=== PATIENT | male | born 1955 | race Caucasian/White ===

== ENCOUNTER 2021-11-12 11:55 | Inpatient (IN) | payer OTHER ==
[~2021-11-12] VITALS: Ht 177.8 cm; Wt 97.1 kg
[2021-11-12 13:41] LABS: BASOPHILS # (AUTO) 0.1 K/uL (0.0-0.2); BASOPHILS % (AUTO) 1.2 % (0.0-2.0); EOSINOPHILS # (AUTO) 0.3 K/uL (0.0-0.4); HEMATOCRIT 31.2 % (36-54); HEMOGLOBIN 10.4 g/dL (14.0-18.0); LYMPHOCYTES # (AUTO) 1.2 K/uL (1.0-5.5); LYMPHOCYTES % (AUTO) 15.9 % (20.5-51.5); MEAN CORPUSCULAR HEMOGLOBIN 29 pg (27-31); MEAN CORPUSCULAR HGB CONC 33 % (32-36); MEAN CORPUSCULAR VOLUME 87 fL (79.0-98.0); MONOCYTES # (AUTO) 0.9 K/uL (0.0-1.0); MONOCYTES % (AUTO) 11.9 % (1.7-9.3); NEUTROPHILS # (AUTO) 5.2 K/uL (1.8-7.7); PLATELET COUNT (AUTO) 181 K/uL (130-430); RED BLOOD CELL COUNT(AUTO) 3.59 MIL/uL (4.2-6.2); RED CELL DISTRIBUTION WIDTH 14.5 % (9.0-15.0); WHITE BLOOD COUNT (AUTO) 7.7 K/uL (4.8-10.8)
[2021-11-12 13:54] LABS: CALCIUM 8.1 mg/dL (8.4-11.0); CREATININE 5.89 mg/dL (0.55-1.30); POTASSIUM 5.7 mmol/L (3.5-5.1)
[2021-11-12 14:03] LABS: ALBUMIN 2.8 g/dL (3.4-4.8); TOTAL BILIRUBIN 0.3 mg/dL (0.0-1.0)
--- NOTE | 2021-11-12 15:00 | NUR ---
Placed in room H1 . Placed on inspector returned materials, blood pressure machine and pulse oximeter. To gown for exam. Side rails up.
--- NOTE | 2021-11-12 15:07 | NUR ---
DR KAUR IN ROOM FOR EXAM
[2021-11-12] MEDS ORDERED: SODIUM BICARBONATE 8.4% JECT 50 MEQ/50 ML SYRINGE IVP ONE (15:15)
[2021-11-12] MEDS ORDERED: CALCIUM GLUCONATE 1 GM/10 ML VIAL IVP ONE (15:15)
[2021-11-12] MEDS ORDERED: SODIUM POLYSTYRENE SULFONATE 15 GM/60 ML UDBTL PO ONE (15:15)
--- NOTE | 2021-11-12 16:12 | NUR ---
REPORT RECEIEVED, PT LAYING IN BED, IN NAD. RESP EVEN AND UNLABORED, ON RA @98%. PT AAOX3, REPORTS BEING TOLD FROM WORK COMPANY TO COME HERE FOR ABNORMAL LABS. PT DENIES ANY SOB OR CP. SKIN W/D/I. REPORTS SOME OLD HISTORY OF RENAL ISSUES, BUT HAS NOT FOLLOWED UP RECENTLY.
[2021-11-12] MEDS ORDERED: IPRATROPIUM/ALBUTEROL SULFATE 3 ML AMPUL.NEB (DUONEB) INH PRN (16:30)
[2021-11-12] MEDS ORDERED: MUPIROCIN 2% TOPICAL OINTMENT 22 GM NS PRN (16:30)
[2021-11-12] MEDS ORDERED: ACETAMINOPHEN 325 MG TABLET PO PRN (16:30)
[2021-11-12] MEDS ORDERED: LORazepam 2 MG/ML VIAL IVP PRN (16:30)
[2021-11-12] MEDS ORDERED: MAGNESIUM SULFATE 50 ML IV PRN (16:30)
[2021-11-12] MEDS ORDERED: ZOLPIDEM TARTRATE 5 MG TABLET PO PRN (16:30)
[2021-11-12] MEDS ORDERED: NACL 0.9% 1,000 ML IV SCH (16:30)
[2021-11-12] MEDS ORDERED: MORPHINE 2 MG/ML INJ. SYRINGE IVP PRN ×2 (16:30)
[2021-11-12] MEDS ORDERED: ONDANSETRON HCL 4 MG/2 ML VIAL IVP PRN (16:30)
[2021-11-12] MEDS ORDERED: POTASSIUM CHLORIDE 20 MEQ TAB.PRT.SR PO PRN (16:30)
[2021-11-12] MEDS ORDERED: DOCUSATE SODIUM 100 MG CAPSULE PO PRN (16:30)
--- NOTE | 2021-11-12 16:47 | NUR ---
DR MALONE AT BEDSIDE FOR ORDERS.
[2021-11-12 16:49] LABS: CALCIUM 8.6 mg/dL (8.4-11.0); CREATININE 5.72 mg/dL (0.55-1.30); POTASSIUM 5.5 mmol/L (3.5-5.1)
--- NOTE | 2021-11-12 16:50 | NUR ---
PT UP TO BATHROOM, STEAY GAIT.
--- NOTE | 2021-11-12 17:04 | NUR ---
KIDNEY US BEING DONE AT BEDSIDE.
--- NOTE | 2021-11-12 17:50 | NUR ---
PT HYPERTENSIVE AT 187/104, DR KAUR INFORMED. PT ASYMTPOMATIC, WILL CONT TO MONITOR CLOSELY, ORDERS RECEIEVED.
--- NOTE | 2021-11-12 18:32 | NUR ---
DINNER CARDIAC TRAY GIVEN-TOLERATED WELL.
--- NOTE | 2021-11-12 19:08 | NUR ---
us venous dopppler beig done at bedside.
--- NOTE | 2021-11-12 19:39 | NUR ---
PT HAD DINNER-CARDIAC DIET, TOLERATED WELL. PT CONT TO BE HYPERTENSIVE, DR KAUR REMINDED AGAIN. WILL WAIT FOR HYDRALAZINE ORDER.
[2021-11-12] MEDS ORDERED: hydrALAZINE HCL 20 MG/ML VIAL IVP ONE (19:45)
[2021-11-12] MEDS ORDERED: LISI-209 PO (20:04)
[2021-11-12] MEDS ORDERED: SIMV20TA2 PO (20:04)
[2021-11-12] MEDS ORDERED: DILT30TA36 PO (20:04)
--- NOTE | 2021-11-12 21:07 | NUR ---
DR TY (NEPHROLOGST) AT BEDSIDE FOR EXAM.
[2021-11-12] MEDS ORDERED: SODIUM ZIRCONIUM CYCLOSILICATE 10 GM POWD.PACK PO ONE (21:45)
--- NOTE | 2021-11-12 22:06 | NUR ---
PT READING AT THIS TIME, IN NAD. DENIES ANY CP OR SOB. SKIN W/D/I, ON MONITOR. CONT TO BE HYPERTENSIVE AT 209/106, DR KAUR UPDATED. 97% ON RA.
--- NOTE | 2021-11-13 00:03 | NUR ---
PT WITH EYES CLOSED. RESP EVEN AND UNLABORED, ON RA @99%. SR ON MONITOR. SAFTEY PRECAUTIONS IN PLACE, WILL CONT TO MONITOR. VSS.
[2021-11-13 00:52] VITALS: BP_SYST 188
--- NOTE | 2021-11-13 02:08 | NUR ---
PT WITH EYES CLOSED, EASILY AROUSABLE. DENIES ANY GARCIA , DIZZINES, CP OR SOB. NSR ON MONITOR.
[2021-11-13] MEDS: amLODIPine BESYLATE 10 MG TABLET PO SCH (02:28)
[2021-11-13] MEDS: HEPARIN SODIUM,PORCINE 5,000 UNITS/ML VIAL SUBCUT SCH ×3 (02:35→21:58)
--- NOTE | 2021-11-13 04:25 | NUR ---
PT UP TO BATHROOM, STEADY GAIT. DENIES ANY CP OR SOB. IV FUIDS INFUSING WELL.
--- NOTE | 2021-11-13 05:40 | NUR ---
NO ACUTE CHNAGES IN CONDITION, PT SNORING, SR ON MONITOR. IV FLUIDS INFUSING WELL.
--- NOTE | 2021-11-13 06:02 | NUR ---
JONATHAN ACEVEDO COLLEECTED AND SENT.
--- NOTE | 2021-11-13 06:06 | NUR ---
MANAGER RESPIRATORY AT BEDSIDE FOR BLOOD COLLECTION
[2021-11-13 06:51] LABS: BASOPHILS # (AUTO) 0.1 K/uL (0.0-0.2); BASOPHILS % (AUTO) 0.9 % (0.0-2.0); EOSINOPHILS # (AUTO) 0.4 K/uL (0.0-0.4); EOSINOPHILS % (AUTO) 5.3 % (0.0-4.0); HEMATOCRIT 32.8 % (36-54); HEMOGLOBIN 10.8 g/dL (14.0-18.0); LYMPHOCYTES # (AUTO) 1.1 K/uL (1.0-5.5); LYMPHOCYTES % (AUTO) 16.1 % (20.5-51.5); MEAN CORPUSCULAR HEMOGLOBIN 29 pg (27-31); MEAN CORPUSCULAR HGB CONC 33 % (32-36); MEAN CORPUSCULAR VOLUME 88 fL (79.0-98.0); MONOCYTES # (AUTO) 0.8 K/uL (0.0-1.0); MONOCYTES % (AUTO) 11.2 % (1.7-9.3); NEUTROPHILS # (AUTO) 4.6 K/uL (1.8-7.7); NEUTROPHILS % (AUTO) 66.5 % (40.0-70.0); PLATELET COUNT (AUTO) 177 K/uL (130-430); RED BLOOD CELL COUNT(AUTO) 3.74 MIL/uL (4.2-6.2); RED CELL DISTRIBUTION WIDTH 14.1 % (9.0-15.0); WHITE BLOOD COUNT (AUTO) 6.9 K/uL (4.8-10.8)
[2021-11-13 07:29] LABS: CREATININE 5.03 mg/dL (0.55-1.30); POTASSIUM 4.5 mmol/L (3.5-5.1)
[2021-11-13] MEDS ORDERED: METOPROLOL TARTRATE 25 MG TABLET PO SCH (08:30)
[2021-11-13] MEDS ORDERED: hydrALAZINE HCL 20 MG/ML VIAL IVP PRN (08:30)
--- NOTE | 2021-11-13 09:10 | NUR ---
Dr Beasley at bedside examining pt.
--- NOTE | 2021-11-13 09:55 | NUR ---
echocardiogram in progress.
[2021-11-13] MEDS ORDERED: LABETALOL HCL 100 MG TABLET PO ONE (10:30)
[2021-11-13] MEDS ORDERED: HEPARIN SODIUM,PORCINE 5,000 UNITS/ML VIAL ONE (10:32)
[2021-11-13] MEDS: 0.45% NACL 1,000 ML IV SCH (10:38)
--- NOTE | 2021-11-13 14:05 | NUR ---
transferred pt to Telemetry dept 116-a, report given to SERA Epstein. All personal belongings removed and brought in to assigned room.
[2021-11-13 14:20] VITALS: BP_SYST 181
[2021-11-13 15:18] LABS: ALBUMIN 2.4 g/dL (3.4-4.8); CALCIUM 7.7 mg/dL (8.4-11.0); CREATININE 4.98 mg/dL (0.55-1.30); POTASSIUM 4.2 mmol/L (3.5-5.1); TOTAL BILIRUBIN 0.4 mg/dL (0.0-1.0)
[2021-11-13] MEDS: DILTIAZEM HCL 30 MG TABLET PO SCH ×2 (18:52→21:48)
[2021-11-13 18:56] VITALS: BP_SYST 182
[2021-11-13] MEDS: hydrALAZINE HCL 25 MG TABLET PO SCH ×2 (18:56→21:47)
[2021-11-13 18:58] VITALS: BP_SYST 177
--- NOTE | 2021-11-13 20:42 | NUR ---
ADMISSION NOTE late entry 14:05 Received patient from ER via gurney, received report from RN. Patient admitted with diagnosis of acute renal failure. Patient oriented to hospital routine, call light, toileting and safety-patient verbalized understanding.
[2021-11-13] MEDS ORDERED: LABETALOL HCL 100 MG TABLET PO SCH (21:00)
[2021-11-13] MEDS ORDERED: hydrALAZINE HCL 25 MG TABLET PO SCH (21:00)
[2021-11-13] MEDS: SIMVASTATIN 20 MG TABLET PO SCH (22:08)
[2021-11-13 22:30] VITALS: BP_SYST 195
[2021-11-14] MEDS: 0.45% NACL 1,000 ML IV SCH ×2 (00:14→15:36)
[2021-11-14 01:00] VITALS: BP_SYST 133
[2021-11-14 07:42] LABS: BASOPHILS % (AUTO) 0.6 % (0.0-2.0); EOSINOPHILS # (AUTO) 0.3 K/uL (0.0-0.4); EOSINOPHILS % (AUTO) 5.2 % (0.0-4.0); HEMATOCRIT 29.9 % (36-54); HEMOGLOBIN 10.1 g/dL (14.0-18.0); LYMPHOCYTES # (AUTO) 1.2 K/uL (1.0-5.5); LYMPHOCYTES % (AUTO) 18.4 % (20.5-51.5); MEAN CORPUSCULAR HEMOGLOBIN 29 pg (27-31); MEAN CORPUSCULAR HGB CONC 34 % (32-36); MEAN CORPUSCULAR VOLUME 87 fL (79.0-98.0); MONOCYTES # (AUTO) 0.6 K/uL (0.0-1.0); MONOCYTES % (AUTO) 9.2 % (1.7-9.3); NEUTROPHILS # (AUTO) 4.2 K/uL (1.8-7.7); NEUTROPHILS % (AUTO) 66.6 % (40.0-70.0); PLATELET COUNT (AUTO) 162 K/uL (130-430); RED BLOOD CELL COUNT(AUTO) 3.44 MIL/uL (4.2-6.2); RED CELL DISTRIBUTION WIDTH 14.2 % (9.0-15.0); WHITE BLOOD COUNT (AUTO) 6.3 K/uL (4.8-10.8)
[2021-11-14 07:52] LABS: CALCIUM 7.8 mg/dL (8.4-11.0); CREATININE 4.34 mg/dL (0.55-1.30); POTASSIUM 4.2 mmol/L (3.5-5.1)
[2021-11-14 09:15] VITALS: BP_SYST 152
[2021-11-14] MEDS: DILTIAZEM HCL 30 MG TABLET PO SCH ×3 (09:30→21:05)
[2021-11-14] MEDS: LABETALOL HCL 100 MG TABLET PO SCH ×3 (09:31→21:04)
[2021-11-14] MEDS: hydrALAZINE HCL 25 MG TABLET PO SCH ×3 (09:32→21:00)
[2021-11-14] MEDS: amLODIPine BESYLATE 10 MG TABLET PO SCH ×2 (09:33→09:36)
[2021-11-14] MEDS: HEPARIN SODIUM,PORCINE 5,000 UNITS/ML VIAL SUBCUT SCH ×2 (09:34→20:55)
[2021-11-14 12:19] VITALS: BP_SYST 118
[2021-11-14 15:31] VITALS: BP_SYST 136
--- NOTE | 2021-11-14 18:48 | NUR ---
Outcome Summary A/Ox4, KALSKAG. VSS. Afebrile. Denies pain or discomfort. RA. SR on tele. SBP stable 120-130s. Tolerating diet. Voiding. Bowel movement x1. Skin intact. Ambulates with steady gait. IVFs continued. All needs met, safety and comfort measures maintained, call light within reach. NR, RN.
[2021-11-14] MEDS ORDERED: BUDESONIDE 0.5 MG/2 ML AMPUL.NEB INH SCH (19:00)
[2021-11-14] MEDS ORDERED: IPRATROPIUM/ALBUTEROL SULFATE 3 ML AMPUL.NEB (DUONEB) INH SCH (19:00)
[2021-11-14 20:52] VITALS: BP_SYST 130
[2021-11-14] MEDS: SIMVASTATIN 20 MG TABLET PO SCH (21:01)
[2021-11-15 00:38] VITALS: BP_SYST 114
[2021-11-15 04:11] VITALS: BP_SYST 130
[2021-11-15] MEDS: 0.45% NACL 1,000 ML IV SCH (05:25)
--- NOTE | 2021-11-15 06:29 | NUR ---
PATIENT WENT THROUGHOUT THE NIGHT WITHOUT ANY COMPLAINTS, BLOOD PRESSURE SYSTOLIC RANGED BETWEEN 114-130. HE HAS A STEADY GAIT AND DENIES ANY PAIN. ALL NEEDS MET, SAFETY AND COMFORT MEASURES MAINTAINED THROUGHOUT THE SHIFT. CALL LIGHT WITHIN PATIENTS REACH AND BED AT LOWEST POSITION
[2021-11-15 07:49] LABS: BASOPHILS % (AUTO) 0.7 % (0.0-2.0); EOSINOPHILS # (AUTO) 0.4 K/uL (0.0-0.4); EOSINOPHILS % (AUTO) 6.1 % (0.0-4.0); HEMATOCRIT 29.4 % (36-54); HEMOGLOBIN 9.8 g/dL (14.0-18.0); LYMPHOCYTES # (AUTO) 0.5 K/uL (1.0-5.5); MEAN CORPUSCULAR HEMOGLOBIN 29 pg (27-31); MEAN CORPUSCULAR HGB CONC 33 % (32-36); MEAN CORPUSCULAR VOLUME 87 fL (79.0-98.0); MONOCYTES # (AUTO) 0.7 K/uL (0.0-1.0); MONOCYTES % (AUTO) 11.6 % (1.7-9.3); NEUTROPHILS # (AUTO) 4.5 K/uL (1.8-7.7); NEUTROPHILS % (AUTO) 73.6 % (40.0-70.0); PLATELET COUNT (AUTO) 151 K/uL (130-430); RED BLOOD CELL COUNT(AUTO) 3.38 MIL/uL (4.2-6.2); WHITE BLOOD COUNT (AUTO) 6.1 K/uL (4.8-10.8)
[2021-11-15 08:14] VITALS: BP_SYST 148
[2021-11-15 08:15] LABS: CALCIUM 7.9 mg/dL (8.4-11.0); CREATININE 4.58 mg/dL (0.55-1.30); POTASSIUM 4.3 mmol/L (3.5-5.1)
[2021-11-15] MEDS: LABETALOL HCL 100 MG TABLET PO SCH ×2 (09:36→15:52)
[2021-11-15] MEDS: DILTIAZEM HCL 30 MG TABLET PO SCH ×2 (09:37→15:52)
[2021-11-15] MEDS: amLODIPine BESYLATE 10 MG TABLET PO SCH (09:38)
[2021-11-15] MEDS: hydrALAZINE HCL 25 MG TABLET PO SCH ×2 (09:39→15:51)
[2021-11-15] MEDS: HEPARIN SODIUM,PORCINE 5,000 UNITS/ML VIAL SUBCUT SCH (09:40)
[2021-11-15] MEDS ORDERED: LABE200T6 PO (13:41)
[2021-11-15] MEDS ORDERED: NOR10 PO (13:46)
[2021-11-15 15:48] VITALS: BP_SYST 148
--- NOTE | 2021-11-15 16:21 | NUR ---
Discharge Summary Discharge instructions explained to pt, verbalized understanding. IV removed, belongings returned, follow-up instructions reviewed. NR, RN.
== END 2021-11-15 16:20 | disposition home or self-care (01) | DRG 291 ==
LOC: SED 11:55 → STU 16:26
PROVIDERS: ADMIT General Practice; ATTEND General Practice
DX: I13.2 Hypertensive heart and chronic kidney disease with heart failure and with stage 5 chronic kidney disease, or end stage renal disease (principal); N17.0 Acute kidney failure with tubular necrosis; I50.43 Acute on chronic combined systolic (congestive) and diastolic (congestive) heart failure; N18.6 End stage renal disease; E44.0 Moderate protein-calorie malnutrition; I16.1 Hypertensive emergency; J44.9 Chronic obstructive pulmonary disease, unspecified; E83.51 Hypocalcemia; E87.5 Hyperkalemia; Z20.822 Contact with and (suspected) exposure to COVID-19; E78.5 Hyperlipidemia, unspecified; D63.1 Anemia in chronic kidney disease; K58.9 Irritable bowel syndrome, unspecified; D64.9 Anemia, unspecified; I35.8 Other nonrheumatic aortic valve disorders; Z68.30 Body mass index [BMI] 30.0-30.9, adult
CPT/HCPCS: 36415; 71045; 76770; 80048; 80053; 83690; 83735; 83880; 84443; 84484; 85025; 93005; 93306; 93971; 94640; 94760; 96374; 96375; 99285; G0378; J0360; J0610; J1644; J7626

== ENCOUNTER 2021-11-19 11:45 | Outpatient (CLI) | payer OTHER ==
[~2021-11-19 11:45] MED LIST: DILT30TA36 PO; LABE200T6 PO; LISI-209 PO; NOR10 PO; SIMV20TA2 PO
[2021-11-19 12:45] LABS: BASOPHILS % (AUTO) 0.8 % (0.0-2.0); EOSINOPHILS # (AUTO) 0.3 K/uL (0.0-0.4); EOSINOPHILS % (AUTO) 4.6 % (0.0-4.0); HEMATOCRIT 27.5 % (36-54); HEMOGLOBIN 9.2 g/dL (14.0-18.0); LYMPHOCYTES # (AUTO) 1.5 K/uL (1.0-5.5); LYMPHOCYTES % (AUTO) 27.1 % (20.5-51.5); MEAN CORPUSCULAR HEMOGLOBIN 29 pg (27-31); MEAN CORPUSCULAR HGB CONC 34 % (32-36); MEAN CORPUSCULAR VOLUME 87 fL (79.0-98.0); MONOCYTES # (AUTO) 0.6 K/uL (0.0-1.0); MONOCYTES % (AUTO) 10.5 % (1.7-9.3); NEUTROPHILS # (AUTO) 3.1 K/uL (1.8-7.7); PLATELET COUNT (AUTO) 130 K/uL (130-430); RED BLOOD CELL COUNT(AUTO) 3.16 MIL/uL (4.2-6.2); RED CELL DISTRIBUTION WIDTH 14.3 % (9.0-15.0); WHITE BLOOD COUNT (AUTO) 5.4 K/uL (4.8-10.8)
[2021-11-19 12:57] LABS: ALBUMIN 2.5 g/dL (3.4-4.8); CALCIUM 7.2 mg/dL (8.4-11.0); CREATININE 6.01 mg/dL (0.55-1.30); PHOSPHORUS 7.8 mg/dL (2.7-4.5); POTASSIUM 4.8 mmol/L (3.5-5.1); TOTAL BILIRUBIN 0.3 mg/dL (0.0-1.0)
[2021-11-19 13:02] LABS: TOTAL IRON BIND. CAPACITY 229 ug/dL (250-450)
[2021-11-20 07:06] LABS: FERRITIN 112 ng/mL (30-400)
== END 2021-11-19 19:39 | disposition home or self-care (01) ==
LOC: SLB 11:45
DX: I12.9 Hypertensive chronic kidney disease with stage 1 through stage 4 chronic kidney disease, or unspecified chronic kidney disease (principal); N18.4 Chronic kidney disease, stage 4 (severe); D63.1 Anemia in chronic kidney disease
CPT/HCPCS: 36415; 80053; 82306; 82728; 83540; 83550; 83735; 83970; 84100; 85025